=== PATIENT | male | born 2005 | race Caucasian/White ===

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

== ENCOUNTER 2024-12-17 09:40 | Emergency (ER) | payer OTHER, SELFPAY ==
[2024-12-17 09:41] VITALS: BP 154/79; PULSE 100; RESP 96; TEMP 36.6
--- NOTE | 2024-12-17 09:48 | ED.WOUNDLAC ---
HPI - Wound/Laceration General Chief Complaint: Skin/Abscess/Foreign Body Stated Complaint: left knee injury Time Seen by Provider: 12/17/24 09:47 Source: patient Mode of arrival: ambulatory Limitations: no limitations History of Present Illness HPI narrative: Patient is a 19-year-old male who was wearing jeans yesterday and jumped off a trailer and landed on his left knee and sustained a laceration below the knee. He decided to come today for further evaluation and treatment. He is not up-to-date on his tetanus. Onset (ago): day(s) ( One) Location: other ( left lower extremity below the knee) Extremity Location: Left: lower leg ( below the knee of proximal tib fib) Place: outdoors Patient tetanus UTD: No Context: accidental Associated symptoms: none Treatments prior to arrival: other ( none) Related Data Allergies Allergy/AdvReac Type Severity Reaction Status Date / Time No Known Allergies Allergy Verified 04/24/24 11:41 Review of Systems Review of Systems: All systems reviewed & are unremarkable except as noted in HPI and below Constitutional: Constitutional: Reports no additional constitutional complaints Eyes: Eyes: Reports no additional eye complaints ENT: Reports system reviewed and no additional complaints, except as documented Cardiovascular: Cardiovascular: Reports no additional cardiovascular complaints Respiratory: Respiratory: Reports no additional respiratory complaints Gastrointestinal: Gastrointestinal: Reports no additional gastrointestinal complaints Genitourinary: Genitourinary: Reports no additional male genitourinary complaints Musculoskeletal: Musculoskeletal: Reports no additional musculoskeletal complaints Integumentary/Breasts: Skin/Breast: Reports system reviewed and no additional complaints, except as docu Neurologic: Reports system reviewed and no additional complaints, except as documented Psychiatric: Psychiatric: Reports no additional psychiatric complaints Endocrine: Endocrine: Reports no additional endocrine complaints Hematologic/Lymphatic: Hematologic/Lymphatic: Reports no additional hematologic/lymphatic complaints Allergic/Immunologic: Allergic/Immunologic: Reports no additional allergic/immunologic complaints PMFSH Past Medical History Medical History Chronic headaches No active medical problems Surgical History Surgical History History of surgery on arm Right Arm Social History Social History Smoking status: Never smoker Occupation/Education: occupation Additional occupation/education comments: Works at [employer]. Goes to college in [place]. Exam Const: General: healthy appearing Nutritional Appearance: well nourished Orientation/consciousness: patient oriented x3 Limitations: no limitations HENMT: Head: normal to inspection Ears: external ears normal Face/Nose/Sinus: Normal external nose present Eyes: Conjunctivae: conjunctivae normal Pupils: Equal, round and reactive pupils present EOM: EOMs intact bilaterally Neck: Neck: normal visual inspection Chest: Chest palpation & inspection: normal inspection of the chest Resp: Effort & Inspection: normal respiratory effort and not labored Auscultation: clear to auscultation bilaterally and no crackles Cardio: Rate: regular rate Rhythm: regular rhythm Heart sounds: no murmurs GI: Inspection: non-distended GI Palp: Yes Soft to palpation and No Tenderness to palpation present (GI) Auscultation: normal bowel sounds Back/Spine/Pelvis: Back: no CVA tenderness Skin: General skin exam: normal color Rashes: no rashes Wounds: wound noted and wounds noted Other: left lower extremity proximal tib fib and below the knee has a 7 cm x 2 cm curved laceration with soft tissue showing and no bleeding and no sign of infection but it has been open for a day Neuro: General: patient oriented x3 Cranial nerves: Yes Nystagmus not present Speech: normal speech Extrem: General: normal to inspection Psych: Mental Status: mental status grossly normal Affect: normal affect Attitude: cooperative Course Vital Signs Vital signs: Vital Signs Temperature 36.6 C 12/17/24 09:41 Pulse Rate 100 12/17/24 09:41 Respiratory Rate 96 H 12/17/24 09:41 Blood Pressure 154/79 H 12/17/24 09:41 Oxygen Delivery Room Air 12/17/24 09:41 Temperature 36.6 C 12/17/24 09:41 Pulse Rate 100 12/17/24 09:41 Respiratory Rate 96 H 12/17/24 09:41 Blood Pressure 154/79 H 12/17/24 09:41 Oxygen Delivery Room Air 12/17/24 09:41 Procedures Other Procedure Procedure 1: Other Procedure: Left lower extremity below the knee has a 7 cm x 2 cm curved laceration with good margins for closure; stapling done to close the area; area was cleaned with saline and chlorhexidine; tetanus given; 10 madeleine placed in the linear fashion; antibiotic ointment and a bandage placed MDM - Wound/Laceration MDM Narrative Medical decision making narrative: patient is a 19-year-old male with a left lower extremity laceration done yesterday on accident. We will go ahead and do closure by madeleine after good cleaning. He will get a tetanus shot. He will get antibiotics due to the fact that it has been open for over 24 hours. Discharge Plan Discharge Clinical Impression: Laceration of lower extremity Qualifiers: Encounter type: initial encounter Laterality: left Qualified Code(s): S81.812A - Laceration without foreign body, left lower leg, initial encounter Patient Disposition: Home, Self-Care Condition: Improved Instructions: Antibiotic Form, Laceration (DC), Staple Care (ED) Additional Instructions: please have the madeleine removed in 7-10 days. Patient Language: Comoran Prescriptions: New cephalexin 500 mg capsule 500 mg PO BID 7 Days Qty: 14 0RF No Action atogepant 60 mg tablet 60 mg PO DAILY Qty: 90 1RF Follow-up/Referrals: Telly De Luna DO [Primary Care Provider] - Time of Disposition: 10:37
[2024-12-17] MEDS: TETANUS,DIPHTHERIA,AC PERTUSSIS ADULT 0.5 ML (ADACEL) IM (09:52)
[2024-12-17] MEDS: NEOMYCIN/POLYMYXIN/BACITRACIN OINTMENT PACKET 2 PACKET TOPICAL (11:00)
[2024-12-17 11:10] VITALS: BP 141/97; PULSE 84; RESP 20; TEMP 36.6; O2SAT 95
--- NOTE | 2024-12-17 12:13 | PC.NURSE ---
On 12/17/24, the student, [ sourav lincoln], provided care and completed [facility] documentation on this patient. I have reviewed the student's documentation and agree with the findings.
== END 2024-12-17 11:15 | disposition home or self-care (01) ==
PROVIDERS: Emergency Provider Emergency Medicine; PCP Family Medicine
DX: S81.812A Laceration without foreign body, left lower leg, initial encounter (principal); Z23 Encounter for immunization; W17.89XA Other fall from one level to another, initial encounter
CPT/HCPCS: 12002; 90471; 90715; 99283